=== PATIENT | male | born 1955 | race Caucasian/White ===

== ENCOUNTER → 2018-04-02 08:55 | Outpatient (POV) | payer SELFPAY | PROVIDERS: Visit Provider Dermatology | DX: Z00.00 Encounter for general adult medical examination without abnormal findings (principal) ==

== ENCOUNTER 2022-01-24 09:47 | Emergency (ER) | payer MEDICARE, SELFPAY ==
[2022-01-24] VITALS (9 sets, daily range): BP systolic 129–177; BP diastolic 77–112; PULSE 56–68; RESP 12–20; TEMP 36.6–36.7; O2SAT 95–100; BMI 32.1
--- NOTE | 2022-01-24 09:44 | ECG_ITS ---
APPROVED REPORT Exam: Resting ECG HR:60 bpm ECG Measurements Heart Rate 60 AXES VA 179 P 76 QRSd 85 QRS 67 QT 413 T 65 QTc 415 Conclusion SINUS RHYTHM NORMAL ECG UNCONFIRMED REPORT Electronically signed by : Feliberto Martinez MD 01/24/2022 13:47:52
--- NOTE | 2022-01-24 09:54 | XR_ITS ---
FINAL REPORT CLINICAL HISTORY: chest pain FINDINGS: TWO-VIEW CHEST The heart size is normal. The mediastinum is normal. There are right lung opacities, favor scarring. There is right lateral pleural thickening with possible calcification. There is no pneumothorax. IMPRESSION: Right lateral pleural thickening with possible calcification. Follow-up radiographs or CT could further evaluate. Reviewed, Interpreted and Dictated by Amor Whyte III, MD Transcribed by Brigida Jean Authenticated and [facility]
[2022-01-24 10:04] LABS: Coronavirus 19, PCR Not Detected (NotDetected); Influenza A, PCR Not Detected (NotDetected); Influenza B, PCR Not Detected (NotDetected)
--- NOTE | 2022-01-24 10:06 | CT_ITS ---
FINAL REPORT CLINICAL HISTORY: chest pain FINDINGS: Thin section axial CT images of the chest were obtained with contrast. 3D reformatted images were also obtained. This study was performed with techniques to keep radiation doses as low as reasonably achievable (ALARA). Individualized dose reduction techniques using automated exposure control or adjustment of mA and/or kV according to the patient's size were employed. There is diffuse coronary artery calcification There is no evidence of pulmonary embolism. There is no evidence of thoracic aortic aneurysm or dissection. There is no evidence of mediastinal or hilar mass or adenopathy. There is no evidence of pulmonary mass or nodule. There is mild scarring and mild emphysema. There is right lateral pleural thickening and calcification. There is an area of mild left lateral pleural thickening. Limited images of the upper abdomen reveal several bilateral renal cysts. The patient is status post cholecystectomy. IMPRESSION: No evidence of pulmonary embolism. Bilateral pleural thickening as above, likely postinflammatory Reviewed, Interpreted and Dictated by Amor Whyte III, MD Transcribed by Brigida Jean Authenticated and [facility]
--- NOTE | 2022-01-24 10:07 | PC.NURSE ---
pt going to radiology via w/c
--- NOTE | 2022-01-24 10:07 | [facility].EDCP ---
Discharge Plan Disposition Patient Disposition: Home, Self-Care Condition: Good Chief Complaint: Chest Pain Prescriptions Prescriptions: No Action tamsulosin 0.4 mg capsule 0.4 mg PO BID Label Comments: TAKE 1 CAPSULE BY MOUTH TWICE A DAY meloxicam 15 mg tablet 15 mg PO DAILY Label Comments: TAKE 1 TABLET BY MOUTH EVERY DAY atorvastatin 40 mg tablet 40 mg PO DAILY Label Comments: TAKE 1 TABLET BY MOUTH EVERY DAY albuterol sulfate 90 mcg/actuation HFA aerosol inhaler 2 inh inhalation Referrals Follow up/Referrals: Shanda Lynn [Primary Care Provider] - See instructions Activity Restrictions/Add. Instructions Additional Instructions/Restrictions: Recommend following up with your PCP to discuss possible stress test. Clinical Impressions Clinical Impression: Chest pain Instructions Patient Instructions: DI for Atypical Chest Pain Discharge ED Provider: Sergei Corona Chest Pain HPI General Chief Complaint: Chest Pain Stated Complaint: chest pain Time Seen by Provider: 01/24/22 09:53 Mode of Arrival: EMS Source of Information: Patient Limitations: No Limitations Description of Symptoms (Recalled from ER Triage Doc. by RN): c/o chest pain that started this morning, pt was given 5-81mg of aspirin and 1 nitro prior to arrival. pt states that his pain has improved History of Present Illness HPI narrative: Patient is a 66-year-old male who presents with concern for chest pain. He states that this morning he was walking around his house when he got acute onset of stabbing substernal chest pain. He says that it felt like it radiated into his back and his left shoulder. He was concerned that he had pulled a muscle so he took 3-81 mg aspirin and called EMS as his symptoms did not resolve. He says that his pain started to get a little bit better and then EMS gave him nitro and his symptoms have improved substantially. He says that this is happened a few times in the past but he is never felt anything this intense. He says that he normally feels short of breath walking around because he has COPD and says its not any worse than normal. He denies any nausea or diaphoresis. He says that the pain is not worse with deep inspiration. MICHELLE Score for Non-Stemi Age of Patient: 60-69 years old Heart Rate: 50-69 bpm Systolic Blood Pressure: 120-139 mmhg Serum Creatinine: 1.20-1.59 mg/dl CHF [place] Class: I-No CHF Other Risk Factors: None Non-Stemi Risk Score: 105 Related Data Home Medications Medication Instructions Recorded Confirmed albuterol sulfate 90 mcg/actuation 2 inh inhalation 01/24/22 01/24/22 aerosol inhaler atorvastatin 40 mg tablet 40 mg PO DAILY 01/24/22 01/24/22 meloxicam 15 mg tablet 15 mg PO DAILY 01/24/22 01/24/22 tamsulosin 0.4 mg capsule 0.4 mg PO BID 01/24/22 01/24/22 Allergies Allergy/AdvReac Type Severity Reaction Status Date / Time No Known Allergies Allergy Verified 01/24/22 12:17 [facility] Social History (Updated 01/24/22 @ 12:19 by Catalina Cruz [facility]) Smoking Status: Former smoker alcohol intake: never substance use type: denies use current occupational status: retired Travel in the last 8 weeks: None ROS Obtained: Yes All systems reviewed & no additional complaints except as documented A 14 point review of system was obtained and otherwise negative except per HPI Physical Exam General General appearance: alert and in no apparent distress Head Head exam: atraumatic, normocephalic and normal inspection Eye Eye exam: Present normal appearance, PERRL and EOMI ENT ENT exam: Present normal exam, normal oropharynx, mucous membranes moist, TM's normal bilaterally and normal external ear exam Neck Neck exam: Present normal inspection, full ROM and trachea midline; Absent meningismus or lymphadenopathy Chest Chest inspection: Present normal inspection and symmetric chest wall rise; Absent tenderness Respiratory
[2022-01-24 10:08] LABS: Basophils # 0.1 K/mm3 (0-0.2); Eosinophils # 0.3 K/mm3 (0.0-0.4); Eosinophils % 3.8 % (0.1-12.0); Hematocrit 44.3 % (42.0-52.0); Hemoglobin 13.9 g/dL (14.1-18.0); Lymphocytes % 24.7 % (10-50); Mean Corpuscular HGB Conc 31.5 g/dL (31.8-35.4); Mean Corpuscular Hemoglobin 28.1 pg (27.0-31.2); Mean Corpuscular Volume 89.3 fl (80-94); Monocytes # 0.4 K/mm3 (0.1-1.0); Monocytes % 4.9 % (1.7-9.3); Neutrophils # 5.4 K/mm3 (1.8-7.8); Neutrophils % 65.7 % (37.0-80.0); Platelet Count 179 K/mm3 (142-424); Red Blood Count 4.95 M/mm3 (4.60-6.20); Red Cell Distribution Width 14.8 % (11.5-17.5); White Blood Count 8.3 K/mm3 (4.8-10.8)
[2022-01-24 10:23] LABS: Anion Gap 9.8 mEq/L (5-15); Blood Urea Nitrogen 30 mg/dl (9-20); Calcium 9.5 mg/dl (8.4-10.2); Carbon Dioxide 30 mmol/L (22.0-30.0); Chloride 106 mmol/L (98-107); Creatinine Clearance Estimated 80 mL/min (50-200); Estimated Glomerular Filt Rate 55 ml/min (>60); GFR (African American) 66 ML/MIN (>60); Glucose 126 mg/dl (74-100); Potassium 4.8 mmoL/L (3.5-5.1); Sodium 141 mmol/L (136-145)
[2022-01-24 10:36] LABS: Troponin I < 0.01 ng/ml (0.00-0.034)
[2022-01-24 14:39] LABS: Troponin I < 0.01 ng/ml (0.00-0.034)
== END 2022-01-24 15:00 | disposition home or self-care (01) ==
PROVIDERS: Emergency Provider Student in an Organized Health Care Education/Training Program; PCP Family Medicine
DX: R07.2 Precordial pain (principal); M54.9 Dorsalgia, unspecified; M25.512 Pain in left shoulder; J44.9 Chronic obstructive pulmonary disease, unspecified; Z20.822 Contact with and (suspected) exposure to COVID-19; Z79.51 Long term (current) use of inhaled steroids; Z79.899 Other long term (current) drug therapy; Z87.891 Personal history of nicotine dependence
CPT/HCPCS: 71046; 71275; 80048; 84484; 85025; 93005; 99285; C9803; Q9967; U0003; U0005